=== PATIENT | female | born 1935 | race Caucasian/White ===

== ENCOUNTER → 2016-11-24 | Outpatient (CLI) | payer MEDICARE, OTHER ==
[~2016-11-24] MED LIST: ADVAIR 250-501 EACH IH; ALAVERT10 MG PO; ALB/IPRATROPIUM/1 E1 INH; ALBUTEROL17 GM INH; AMLODIPINE BESYL5 MG PO; ATIVAN PO; ATIVAN0.5 M1 PO; COMBIVENT U/D3 ML INH; DALIRESP500 MCG DOB; DALIRESP500 MCG PO; DILTIAZEM 24HR240 MG PO; DIOVAN PO; DIOVAN160 MG PO; DOXAZOSIN MESYLA4 MG PO; DULERA 100 MCG/13 GM IH; DULERA 200 MCG/13 GM IH; FLEXERIL PO; FLEXERIL10 MG PO; FLONASE16 GM; HUMALOG100 U/ML SUBQ; HYDRALAZINE HCL25 MG PO; KLONOPIN PO; LANTUS100 UNITS/ SUBQ; LORTAB 5/500 TA1 TA1 PO; NEURONTIN PO; NORVASC PO; OXYGEN; PAXIL PO; PERCOCET PO; PRAVASTATIN SOD20 MG PO; PREDNISONE PO; PREMARIN PO; PRINIVIL20 M1 PO; PROMETHAZINE HC25 MG PO; PROTONIX PO; ROBAXIN 750750 MG DOB; ROBITUSSIN15 MG/5 ML PO; SERTRALINE HCL100 MG PO; TRAZODONE HCL100 MG PO; TRIAMTERENE-HCT1 TA7 PO; VICODIN 5/1 TAB 5/50 PO; ZOLOFT PO; ZOLOFT100 MG PO; ZYRTEC PO
--- NOTE | ~2016-11-24 | US48 ---
[facility]. [facility] A Service of [facility] & [facility] RADIOLOGY TEXT RESULTS PATIENT: MONIQUE RODRIGUEZ LOCATION: [place] : 37 UNIT #: [id number] AGE: [address]: IRENE BAR MD SEX: F ORDER DR: [id number] [address] [address] [id number] O MR#: [id number] Acc #: [id number] NAME: MONIQUE RODRIGUEZ : 1935 SEX: F STUDY DATE/TIME: 11/24/2016 12:42 UNIT: [facility] ROOM: STUDY DESCRIPTION: US Extremity Anatomic Specific Attending Physician: Irene Bar M.D. Referring Physician: Irene Bar M.D. Ordering Physician: Irene Bar M.D. Primary Care Physician: Keenan Espino M.D. MEDICAL IMAGING REPORT This report is preliminary unless electronic signature is present. EXAM Ultrasound of the back soft tissue. INDICATIONS Low back pain for 1 month. Patient reports she saw her doctor on the 18 of November, and the doctor felt a palpable mass. TECHNIQUE Narayan-scale, color Doppler and spectral Doppler waveform analysis was performed through the area concern. FINDINGS Within the area of concern there is a mildly hyperechoic nodule measuring up to 1.3 x 1.0 x 0.9 cm. It is solid and demonstrates internal color Doppler flow. No other lesions are identified within the area of concern. IMPRESSION Within the area of concern, the patient has a mildly hyperechoic nodule measuring up to 1.3 x 1.0 x 0.9 cm. It is not definitively a lipoma. Given history of back pain for 1 month, I would suggest further evaluation with CT of the abdomen and pelvis preferably with contrast with a marker placed over the area of concern. Dictated by... Evy Escobar M.D. THIS IS AN ELECTRONICALLY VERIFIED REPORT Evy Escobar M.D. at 11/26/2016 4:39 PM AFF/jt TD: 11/25/2016 23:15 [facility] A Service of [facility] RADIOLOGY TEXT RESULTS PATIENT: MONIQUE RODRIGUEZ LOCATION: [facility] #: [id number] : 39 UNIT #: [id number] AGE: [address]: IRENE BAR MD SEX: F ORDER DR: KENYON #: [id number] MEDICAL IMAGING REPORT Page 1 of 1
== END | disposition home or self-care (01) ==
LOC: SGUS 12:25
DX: R22.9 Localized swelling, mass and lump, unspecified (principal)
CPT/HCPCS: 76882

== ENCOUNTER → 2016-12-01 | Outpatient (CLI) | payer MEDICARE, OTHER ==
--- NOTE | ~2016-12-01 | CT2 ---
[facility] A Service of [facility] RADIOLOGY TEXT RESULTS PATIENT: MONIQUE RODRIGUEZ LOCATION: [facility] : 37 UNIT #: [id number] AGE: [address]: IRENE BAR MD SEX: F ORDER DR: [id number] [place] [id number] P MR#: [id number] Acc #: [id number] NAME: MONIQUE RODRIGUEZ : 1935 SEX: F STUDY DATE/TIME: 12/02/2016 12:35 UNIT: [facility] ROOM: STUDY DESCRIPTION: CT Abd and Pelv W Cont Attending Physician: Irene Bar M.D. Referring Physician: Irene Bar M.D. Ordering Physician: Irene Bar M.D. Primary Care Physician: Keenan Espino M.D. MEDICAL IMAGING REPORT This report is preliminary unless electronic signature is present. EXAM CT abdomen and pelvis with contrast INDICATIONS Left-sided back and flank pain for the past month. PROCEDURE Contrast-enhanced CT of the abdomen and pelvis TECHNIQUE This CT exam was performed with one or more of the following radiation dose reduction techniques: automatic exposure control, adjustment of mA and/or kV according to patient size, and iterative reconstruction. COMPARISON 03/22/2011 FINDINGS Abdomen with contrast: Included lung bases predominately clear. Scattered hepatic cysts similar to the previous study. Spleen unremarkable. A 6.4 cm cyst exophytic from the upper left kidney and. Indeterminate bilateral adrenal nodules, very similar and previously characterized as benign adenomas. Unremarkable gallbladder. Pancreas atrophic but shows no acute findings. Uncomplicated sigmoid diverticula. Pelvis with contrast: Previous hysterectomy. No pelvic mass or fluid. There has been a skin marker placed on the skin in the left flank in an area of concern on recent previous ultrasound. And there is no CT abnormality seen in this region. [facility] A Service of [facility] RADIOLOGY TEXT RESULTS PATIENT: MONIQUE RODRIGUEZ LOCATION: [facility] : 39 UNIT #: [id number] AGE: [address]: IRENE BAR MD SEX: F ORDER DR: IMPRESSION 1. No acute findings. 2. Skin marker placed in the left flank and an area of concern and on recent ultrasound, but there is no CT abnormalities seen in this region. 3. Incidental findings are detailed above. Dictated by... Rogers Walker M.D. THIS IS AN ELECTRONICALLY VERIFIED REPORT Rogers Walker M.D. at 12/03/2016 2:24 PM SAMIA/gale TD: 12/02/2016 20:49 JOB #: [id number] MEDICAL IMAGING REPORT Page 1 of 1
[2016-12-02 13:42] LABS: POC - CREATININE 1.02 mg/dL (0.44-1.03)
== END | disposition home or self-care (01) ==
LOC: SCT 10:43
PROVIDERS: Specialist/Technologist, Other Surgical Technologist
DX: R19.09 Other intra-abdominal and pelvic swelling, mass and lump (principal); R22.9 Localized swelling, mass and lump, unspecified
CPT/HCPCS: 74177; 82565; Q9967